=== PATIENT | female | born 1945 | race Caucasian/White ===

== ENCOUNTER 2024-07-03 09:21 | Emergency (ER) | payer MEDICARE ==
[~2024-07-03] VITALS: Ht 154.9 cm; Wt 52.2 kg
[2024-07-03 09:25] VITALS: BP_SYST 138; PULSE 64; RESP 18; TEMP 98.3; O2SAT 98
[2024-07-03] MEDS: MORPHINE 4 MG INJ. 4 MG/ML VIAL IVP ONE (09:58)
[2024-07-03 09:59] LABS: BASOPHILS % (AUTO) 0.5 % (0.0-2.0); EOSINOPHILS # (AUTO) 0.1 K/uL (0.0-0.4); EOSINOPHILS % (AUTO) 0.7 % (0.0-4.0); HEMATOCRIT 41.1 % (36-48); HEMOGLOBIN 12.8 g/dL (12.0-16.0); LYMPHOCYTES # (AUTO) 2.6 K/uL (1.0-5.5); LYMPHOCYTES % (AUTO) 33.3 % (20.5-51.5); MEAN CORPUSCULAR HEMOGLOBIN 23 pg (27-31); MEAN CORPUSCULAR HGB CONC 31 % (32-36); MEAN CORPUSCULAR VOLUME 75 fL (79.0-98.0); MONOCYTES # (AUTO) 0.7 K/uL (0.0-1.0); MONOCYTES % (AUTO) 8.7 % (1.7-9.3); NEUTROPHILS # (AUTO) 4.4 K/uL (1.8-7.7); NEUTROPHILS % (AUTO) 56.8 % (40.0-70.0); PLATELET COUNT (AUTO) 273 K/uL (130-430); RED CELL DISTRIBUTION WIDTH 16.3 % (9.0-15.0); WHITE BLOOD COUNT (AUTO) 7.7 K/uL (4.8-10.8)
[2024-07-03] MEDS: ONDANSETRON HCL 4 MG/2 ML VIAL IVP ONE (10:00)
[2024-07-03 11:22] LABS: BILIRUBIN,URINE NEGATIVE (NEGATIVE); BLOOD, URINE NEGATIVE (NEGATIVE); CLARITY/URINE CLEAR (CLEAR); COLOR,URINE YELLOW (YELLOW); GLUCOSE,URINE NEGATIVE (NEGATIVE); KETONES,URINE NEGATIVE (NEGATIVE); LEUKOCYTE ESTERASE ,URINE 1+ (NEGATIVE); NITRITE, URINE NEGATIVE (NEGATIVE); PH,URINE 6.5 (5.0-8.0); PROTEIN URINE NEGATIVE (NEGATIVE); UROBILINOGEN,URINE 0.2 (0.2-1.0)
[2024-07-03 11:26] LABS: ALANINE AMINOTRANSFERASE 29 U/L (12-78); ALBUMIN 3.2 g/dL (3.4-4.8); ANION GAP 13 (5-15); ASPARTATE AMINOTRANSFERASE 29 U/L (10-37); BILIRUBIN,DIRECT 0.2 mg/dL (0.0-0.3); CALCIUM 9.4 mg/dL (8.4-11.0); CARBON DIOXIDE 24 mmol/L (23-29); CHLORIDE 103 mmol/L (98-107); CREATININE 0.94 mg/dL (0.55-1.30); GLUCOSE 117 mg/dL (74-106); LIPASE 86 U/L (16-77); POTASSIUM 3.4 mmol/L (3.5-5.1); PROTHROMBIN TIME 10.4 SECS (9.5-12.5); SODIUM SERUM 140 mmol/L (136-145); TOTAL PROTEIN, SERUM 7.2 g/dL (6.4-8.3); UREA NITROGEN, BLOOD 14 mg/dL (8-21)
[2024-07-03 11:45] LABS: BACTERIA,URINE RARE /HPF (None Seen); HYALINE CASTS, URINE 0-1 /LPF (None Seen); RBC,URINE 0-3 /HPF (0-3)
[2024-07-03] MEDS ORDERED: NPH,100I SUBCUT (12:17)
[2024-07-03] MEDS ORDERED: BUSP5TAB3 PO (12:17)
[2024-07-03] MEDS ORDERED: MIRT-91 PO (12:17)
[2024-07-03] MEDS ORDERED: ESCI-6 PO (12:17)
[2024-07-03] MEDS ORDERED: ATOR40TA68 PO (12:17)
[2024-07-03] MEDS ORDERED: METO25TA6 PO (12:17)
[2024-07-03] MEDS ORDERED: ESTR42.511 VG (12:17)
[2024-07-03] MEDS ORDERED: DONE10TA44 PO (12:17)
[2024-07-03] MEDS ORDERED: QUET25TA36 PO (12:17)
[2024-07-03] MEDS ORDERED: TRAZ-250 PO (12:17)
[2024-07-03] MEDS ORDERED: MEMA5TAB16 PO (12:17)
[2024-07-03] MEDS: cefTRIAXone 1 GM IVPB PREMIX 50 ML IV ONE (12:44)
[2024-07-03] MEDS ORDERED: NITR-85 PO (14:31)
[2024-07-03 14:54] VITALS: BP_SYST 143; PULSE 50; RESP 18; TEMP 98.3; O2SAT 98
[2024-07-03] MEDS ORDERED: ONDANSETRON HCL 4 MG/2 ML VIAL ONE (15:14)
[2024-07-03] MEDS ORDERED: ONDANSETRON HCL 4 MG/2 ML VIAL IVP ONE (15:45)
== END 2024-07-03 15:19 | disposition home or self-care (01) ==
LOC: SED 09:21
DX: N39.0 Urinary tract infection, site not specified (principal); R33.9 Retention of urine, unspecified; R10.31 Right lower quadrant pain; R11.2 Nausea with vomiting, unspecified; Z79.4 Long term (current) use of insulin
CPT/HCPCS: 99285; 74176; 96365; 96375; 80076; 80048; 81000; 81001; 83690; 85025; 85610; 87086; 36415; 82272; 51702; 81015; J0696; J2405; J2270